=== PATIENT | male | born 1970 | race Caucasian/White ===

== ENCOUNTER 2019-05-28 08:54 | Inpatient (IN) | payer OTHER ==
[~2019-05-28] VITALS: Ht 177.8 cm; Wt 84.0 kg
[2019-05-28 09:37] LABS: BASOPHILS % (AUTO) 0.4 % (0-1); EOSINOPHILS # (AUTO) 0.2 X10'3 (0-0.9); HEMATOCRIT 42.8 % (42.0-52.0); HEMOGLOBIN 14.6 g/dl (14.0-17.9); LYMPHOCYTES # (AUTO) 1.5 X10'3 (1.1-4.8); LYMPHOCYTES % (AUTO) 28.6 % (21-51); MEAN CORPUSCULAR HEMOGLOBIN 31.6 PG (27.0-31.0); MEAN CORPUSCULAR HGB CONC 34.2 g/dL (33.0-36.5); MEAN CORPUSCULAR VOLUME 92.4 FL (78-98); MEAN PLATELET VOLUME 6.9 FL (7.4-10.4); MONOCYTES # (AUTO) 0.7 X10'3 (0-0.9); MONOCYTES % (AUTO) 12.9 % (2-12); NEUTROPHILS # (AUTO) 2.7 X10'3 (1.8-7.7); NEUTROPHILS % (AUTO) 54.1 % (42-75); PLATELET COUNT 269 X10'3 (140-440); RED BLOOD COUNT 4.63 X10'6 (4.70-6.10); RED CELL DISTRIBUTION WIDTH 13.1 % (11.5-14.5); WHITE BLOOD COUNT 5.1 X10'3 (4.5-11.0)
[2019-05-28 09:52] LABS: ALANINE AMINOTRANSFERASE 20 U/L (12-78); ALBUMIN 3.6 G/DL (3.4-5.0); ALBUMIN/GLOBULIN RATIO 0.8 (1.1-1.5); ALKALINE PHOSPHATASE 84 IU/L (46-116); ANION GAP 9 (8-16); ASPARTATE AMINO TRANSFERASE 17 U/L (10-37); BILIRUBIN,TOTAL 0.2 MG/DL (0.1-1.0); BLOOD UREA NITROGEN 20 MG/DL (7-18); BUN/CREATININE RATIO 15.9 (5.4-32.0); CALCIUM 9.3 MG/DL (8.5-10.1); CHLORIDE 102 MMOL/L (99-107); CREATININE 1.26 MG/DL (0.60-1.10); GLUCOSE 80 MG/DL (70-104); POTASSIUM 4.4 MMOL/L (3.5-5.1); SODIUM 139 MMOL/L (135-145); TOTAL CARBON DIOXIDE 27.8 MMOL/L (24-32); TOTAL PROTEIN 8.1 G/DL (6.4-8.2); eGFR 61 ML/MIN
[2019-05-28] MEDS ORDERED: piperacillin/tazo 3.375gm/50ml 50 ML IV STA (09:56)
[2019-05-28] MEDS ORDERED: VANCOmycin 1250MG/NS 250ml Bag 250 ML IV ONE (10:05)
[2019-05-28] MEDS ORDERED: mag hydrox/Alum hydrox/simeth 30ml oral suspension PO PRN (10:30)
[2019-05-28] MEDS ORDERED: magnesium hydroxide 30ml (MOM) UD suspension PO PRN (10:30)
[2019-05-28] MEDS ORDERED: magnesium 2GM in 50ml NS 50 ML IV PRN (10:30)
[2019-05-28] MEDS ORDERED: potassium Cl 20 mEq SR tablet PO PRN ×2 (10:30)
[2019-05-28] MEDS ORDERED: magnesium Cl slow-release 64mg tablet PO PRN (10:30)
[2019-05-28] MEDS ORDERED: morphine 2 MG/ML inj. syringe IV PRN (10:30)
[2019-05-28] MEDS ORDERED: metoclopramide 5 mg/ml inj IV PRN (10:30)
[2019-05-28] MEDS ORDERED: acetaminophen 650mg rectal suppository RC PRN (10:30)
[2019-05-28] MEDS ORDERED: ondansetron/PF 4mg/2ml inj IV PRN (10:30)
[2019-05-28] MEDS ORDERED: acetaminophen 325mg tablet PO PRN ×2 (10:30)
[2019-05-28] MEDS ORDERED: magnesium 4gm in 100ml NS 100 ML IV PRN (10:30)
[2019-05-28] MEDS ORDERED: diphenhydrAMINE 25mg capsule PO PRN (10:30)
[2019-05-28] MEDS ORDERED: potassium CL 10mEq/100ml bag 100 ML IV PRN ×2 (10:30)
[2019-05-28] MEDS: K and/or MAG REPLACEMENT MC SCH (10:30)
[2019-05-28] MEDS ORDERED: HYDROcodone/acetaminophen 5mg/325mg tablet PO PRN (10:30)
[2019-05-28] MEDS ORDERED: NO HOME MEDS (10:55)
--- NOTE | 2019-05-28 11:21 | NUR ---
Patient in room ED 1. I have received report from Alfa in the ED and had the opportunity to ask questions and assume patient care.
[2019-05-28 11:24] LABS: HEMOGLOBIN A1C 5.8 % (4.5-6.2)
[2019-05-28 11:40] VITALS: BP 120/71
--- NOTE | 2019-05-28 11:40 | NUR ---
Pt arrived on the floor, accompanied by one guard. Tucked in.
[2019-05-28] MEDS: HYDROcodone/acetaminophen 10/325mg tab PO PRN ×2 (12:20→22:56)
[2019-05-28] MEDS: normal saline 1000ml 1,000 ML IV SCH ×2 (14:14→19:52)
[2019-05-28] MEDS: piperacillin/tazo 3.375gm/50ml 50 ML IV SCH (16:56)
[2019-05-28 17:00] VITALS: BP 117/76
[2019-05-28] MEDS: morphine 2 MG/ML inj. syringe IV PRN (17:05)
--- NOTE | 2019-05-28 18:14 | NUR ---
gave report to [facility]
--- NOTE | 2019-05-28 18:20 | NUR ---
Received report from Mamta FONTANEZ. assumed care of patient.
[2019-05-28] MEDS: heparin, porcine 5000 units/ml vial SQ SCH (19:14)
[2019-05-28 21:00] VITALS: BP 125/77
[2019-05-29] VITALS (14 sets, daily range): BP systolic 97–132; BP diastolic 42–87
[2019-05-29] MEDS: piperacillin/tazo 3.375gm/50ml 50 ML IV SCH ×4 (00:11→23:37)
[2019-05-29 01:19] LABS: CLARITY,URINE CLEAR (Clear); COLOR,URINE YELLOW (Yellow); GLUCOSE, URINE NEGATIVE (Neg); KETONES,URINE NEGATIVE (Neg); LEUKOCYTE ESTERASE ,URINE NEGATIVE (Neg); NITRITES, URINE NEGATIVE (Neg); OCCULT BLOOD,URINE NEGATIVE (Neg); PROTEIN,URINE NEGATIVE (Neg); UROBILINOGEN,URINE 0.2 E.U/dL (0.2-1.0)
[2019-05-29 01:22] LABS: UA COLLECTION TYPE NON-SPECIFIED
[2019-05-29] MEDS: HYDROcodone/acetaminophen 10/325mg tab PO PRN ×4 (04:48→21:03)
[2019-05-29 05:37] LABS: BASOPHILS % (AUTO) 0.3 % (0-1); EOSINOPHILS # (AUTO) 0.3 X10'3 (0-0.9); EOSINOPHILS % (AUTO) 4.8 % (0-6); HEMATOCRIT 42.1 % (42.0-52.0); HEMOGLOBIN 14.3 g/dl (14.0-17.9); LYMPHOCYTES # (AUTO) 2.2 X10'3 (1.1-4.8); LYMPHOCYTES % (AUTO) 34.8 % (21-51); MEAN CORPUSCULAR HEMOGLOBIN 31.4 PG (27.0-31.0); MEAN CORPUSCULAR VOLUME 92.6 FL (78-98); MEAN PLATELET VOLUME 7.2 FL (7.4-10.4); MONOCYTES # (AUTO) 0.6 X10'3 (0-0.9); MONOCYTES % (AUTO) 10.1 % (2-12); NEUTROPHILS # (AUTO) 3.1 X10'3 (1.8-7.7); PLATELET COUNT 294 X10'3 (140-440); RED BLOOD COUNT 4.55 X10'6 (4.70-6.10); RED CELL DISTRIBUTION WIDTH 13.1 % (11.5-14.5); WHITE BLOOD COUNT 6.3 X10'3 (4.5-11.0)
[2019-05-29 05:57] LABS: ALBUMIN 3.3 G/DL (3.4-5.0); ANION GAP 8 (8-16); BILIRUBIN,TOTAL 0.2 MG/DL (0.1-1.0); BLOOD UREA NITROGEN 20 MG/DL (7-18); CALCIUM 8.7 MG/DL (8.5-10.1); CHLORIDE 104 MMOL/L (99-107); CREATININE 1.33 MG/DL (0.60-1.10); GLUCOSE 90 MG/DL (70-104); PHOSPHORUS 4.8 MG/DL (2.3-4.5); POTASSIUM 4.4 MMOL/L (3.5-5.1); SODIUM 139 MMOL/L (135-145); TOTAL CARBON DIOXIDE 27.1 MMOL/L (24-32); TOTAL PROTEIN 7.6 G/DL (6.4-8.2); eGFR 58 ML/MIN
[2019-05-29 05:58] LABS: ALANINE AMINOTRANSFERASE 16 U/L (12-78); ALBUMIN/GLOBULIN RATIO 0.8 (1.1-1.5); ALKALINE PHOSPHATASE 85 IU/L (46-116); ASPARTATE AMINO TRANSFERASE 13 U/L (10-37); CHOLESTEROL 110 MG/DL (0-200); HDL CHOLESTEROL 22 MG/DL (35-60); LDL CHOLESTEROL 83 MG/DL (50-100); TRIGLYCERIDES 115 MG/DL (20-135)
--- NOTE | 2019-05-29 06:25 | NUR ---
gave report to Nora FONTANEZ.
[2019-05-29] MEDS: K and/or MAG REPLACEMENT MC SCH (08:00)
[2019-05-29] MEDS: heparin, porcine 5000 units/ml vial SQ SCH ×2 (08:00→19:25)
[2019-05-29] MEDS: normal saline 1000ml 1,000 ML IV SCH ×2 (08:37→16:30)
[2019-05-29] MEDS ORDERED: ringers solution, lacted 1,000 ML IV SCH (13:17)
[2019-05-29] MEDS ORDERED: proCHLORperazine 10 MG/2 ml inj IV PRN (13:20)
[2019-05-29] MEDS ORDERED: meperidine/PF 25mg/ml syringe IV PRN ×3 (13:20)
[2019-05-29] MEDS ORDERED: ondansetron/PF 4mg/2ml inj IV PRN (13:20)
[2019-05-29] MEDS ORDERED: morphine 4 MG/ML inj SYRINge IV PRN ×2 (13:20)
[2019-05-29] MEDS ORDERED: sevoflurane 250ml liquid IH ONE (13:21)
[2019-05-29] MEDS ORDERED: fentaNYL/PF 50MCG/1 ML 2ML syringe ONE (13:22)
[2019-05-29] MEDS ORDERED: midazolam 2 mg/2 ml injection ONE (13:22)
[2019-05-29] MEDS ORDERED: propofol inj 20 ML IV ONE (13:22)
--- NOTE | 2019-05-29 14:13 | NUR ---
Received from OR via ORTHO BED WITH GACHET , accompanied by Anesthesiologist ARA and report given by Anesthesiolgist. PATIENT WITH LMA PRESENT. VSS. 20G PIV IN LEFT UE RUNNING LR AT 100. CUFFED TO SIDE RAIL BY ANKLE. Addendum: 05/29/19 at 1418 by Naren Lamb RN, RN Amended: Links added.
--- NOTE | 2019-05-29 14:49 | NUR ---
ALL CRITERIA FOR TRANSFER TO THE FLOOR HAS BEEN ACHIEVED. VSS. BED LOW, CALL LIGHT AND VS. SET IN PLACE. RN PRESENT TO ACCEPT CARE. PATIENT RESTING COMFORTABLY IN BED. BELONGINGS SENT WITH PATIENT. DRESSINGS CDI. PATIENT ARM ELEVATED UPON ARRIVAL TO ORTHO. PATIENT EXPRESSING GRATITUDE. HUSEYIN GALLEGO PRESENT TO ACCEPT CARE OF PATIENT. Addendum: 05/29/19 at 1458 by Naren Duarn - HUSEYIN FONTANEZ Amended: Links added.
[2019-05-29] MEDS: lactobacillus rhamnosus 10,000 MMU CELLS/CAPSULE PO SCH (19:24)
[2019-05-30] MEDS: normal saline 1000ml 1,000 ML IV SCH (02:30)
[2019-05-30 02:54] VITALS: BP 113/71
[2019-05-30] MEDS: HYDROcodone/acetaminophen 10/325mg tab PO PRN ×2 (04:31→11:58)
[2019-05-30 05:30] LABS: BASOPHILS % (AUTO) 0.7 % (0-1); EOSINOPHILS # (AUTO) 0.3 X10'3 (0-0.9); HEMATOCRIT 39.1 % (42.0-52.0); HEMOGLOBIN 13.5 g/dl (14.0-17.9); LYMPHOCYTES # (AUTO) 2.1 X10'3 (1.1-4.8); LYMPHOCYTES % (AUTO) 36.5 % (21-51); MEAN CORPUSCULAR HEMOGLOBIN 31.6 PG (27.0-31.0); MEAN CORPUSCULAR HGB CONC 34.6 g/dL (33.0-36.5); MEAN CORPUSCULAR VOLUME 91.5 FL (78-98); MEAN PLATELET VOLUME 7.5 FL (7.4-10.4); MONOCYTES # (AUTO) 0.6 X10'3 (0-0.9); MONOCYTES % (AUTO) 10.2 % (2-12); NEUTROPHILS # (AUTO) 2.7 X10'3 (1.8-7.7); NEUTROPHILS % (AUTO) 47.6 % (42-75); PLATELET COUNT 307 X10'3 (140-440); RED BLOOD COUNT 4.27 X10'6 (4.70-6.10); RED CELL DISTRIBUTION WIDTH 13.1 % (11.5-14.5); WHITE BLOOD COUNT 5.7 X10'3 (4.5-11.0)
[2019-05-30 05:42] LABS: ALANINE AMINOTRANSFERASE 11 U/L (12-78); ALBUMIN/GLOBULIN RATIO 0.8 (1.1-1.5); ALKALINE PHOSPHATASE 72 IU/L (46-116); ANION GAP 7 (8-16); ASPARTATE AMINO TRANSFERASE 15 U/L (10-37); BILIRUBIN,TOTAL 0.2 MG/DL (0.1-1.0); BLOOD UREA NITROGEN 21 MG/DL (7-18); BUN/CREATININE RATIO 18.1 (5.4-32.0); CALCIUM 8.3 MG/DL (8.5-10.1); CHLORIDE 103 MMOL/L (99-107); CREATININE 1.16 MG/DL (0.60-1.10); GLUCOSE 102 MG/DL (70-104); MAGNESIUM 1.9 MG/DL (1.5-2.4); PHOSPHORUS 3.9 MG/DL (2.3-4.5); SODIUM 137 MMOL/L (135-145); TOTAL CARBON DIOXIDE 27.3 MMOL/L (24-32); eGFR 67 ML/MIN
[2019-05-30 06:00] VITALS: BP 116/70
[2019-05-30] MEDS: piperacillin/tazo 3.375gm/50ml 50 ML IV SCH (07:29)
[2019-05-30] MEDS: lactobacillus rhamnosus 10,000 MMU CELLS/CAPSULE PO SCH (07:29)
[2019-05-30] MEDS: heparin, porcine 5000 units/ml vial SQ SCH (07:30)
[2019-05-30] MEDS: morphine 2 MG/ML inj. syringe IV PRN (07:36)
[2019-05-30] MEDS: K and/or MAG REPLACEMENT MC SCH (08:00)
[2019-05-30 10:00] VITALS: BP 118/78
[2019-05-30] MEDS ORDERED: LACT1CAP26 PO (10:39)
[2019-05-30] MEDS ORDERED: LEVO750T46 PO (10:39)
--- NOTE | 2019-05-30 11:08 | NUR ---
attempt to call [facility] at [facility] - [address]- [phone]- in order to give a report on pt whose dc is imminent. I LM asking someone to please call me back
--- NOTE | 2019-05-30 12:06 | NUR ---
SPOKE TO ALEJANDRINA, NURSE AT THE [facility], GAVE REPORT ON PT.
--- NOTE | 2019-05-30 12:21 | NUR ---
fresh surgical dressing in place, contraindicated to take down dressing for picture. Addendum: 05/30/19 at 1222 by Lupe Carlin RN Amended: Links added.
== END 2019-05-30 12:40 | DRG 580 ==
LOC: ER 08:55 → EEVIPCON 10:30 → ED HOLD 10:30 → ORTHO 4S 11:30
PROVIDERS: ADMIT Family Medicine; ATTEND Family Medicine
PROC: 0H9FXZZ Drainage of Right Hand Skin, External Approach (ICD-10-PCS; 2019-05-29)
PROC: 0JBJ0ZZ Excision of Right Hand Subcutaneous Tissue and Fascia, Open Approach (ICD-10-PCS; principal; 2019-05-29 13:21)
DX: L02.511 Cutaneous abscess of right hand (principal); L03.113 Cellulitis of right upper limb; B19.20 Unspecified viral hepatitis C without hepatic coma; F12.90 Cannabis use, unspecified, uncomplicated; F15.10 Other stimulant abuse, uncomplicated; F17.210 Nicotine dependence, cigarettes, uncomplicated; Z59.0 Homelessness
CPT/HCPCS: 36415; 73120; 80053; 80061; 81003; 82948; 83036; 83605; 83735; 84100; 85025; 87040; 87070; 87075; 87077; 87081; 87186; 96374; 99285; A4618; A6222; A6449; G0378; J1644; J2175; J2250; J2270; J2543; J2704; J3010; J3370; J7030; J7120